=== PATIENT | female | born 1970 | race Caucasian/White ===

== ENCOUNTER → 2021-08-31 | Outpatient (CLI) | payer BC ==
--- NOTE | 2021-08-31 17:09 | CARD ---
MR#: [id number] Date of Study: 08/31/2021 Ordering Physician: NELI TRIVEDI, Referring Physician: NELI TRIVEDI, Tech: Carie Rhoades, [facility] APPROVED REPORT EXAM: Two-dimensional and M-mode echocardiogram with Doppler and color Doppler. Other Information Quality : AverageHR: 65bpm INDICATION Murmur 2D DIMENSIONS RVDd2.5 (2.9-3.5cm)Left Atrium(2D)2.8 (1.6-4.0cm) IVSd0.8 (0.7-1.1cm)Aortic Root(2D)2.7 (2.0-3.7cm) LVDd4.2 (3.9-5.9cm)LVOT Diameter2.0 (1.8-2.4cm) PWd0.8 (0.7-1.1cm)LVDs2.2 (2.5-4.0cm) FS (%) 48.8 %SV64.0 ml LVEF(%)80.5 (>50%) Aortic Valve AoV Peak Antwon.142.7cm/sAoV VTI30.1cm AO Peak GR.8.1mmHgLVOT Peak Antwon.129.1cm/s LVOT VTI 27.47cmAO Mean GR.4mmHg ARYAN (VMAX)2.72jk9JTO (VTI)2.78cm2 Mitral Valve MV E Emqglggn88.8cm/sMV DECEL [id number] MV A Myblpxjg89.2cm/sMV E Mean Gr.1mmHg MV CYU82jgD/A Ratio1.4 MVA (PHT)4.14cm2 TDI E/Lateral E'7.3E/Medial E'8.3 Pulmonary Valve PV Peak Fivgeahm84.6cm/sPV Peak Grad.3mmHg Tricuspid Valve TR P. Rozcqopv073yj/sRAP ZYERDGVA4bhFb TR Peak Gr.68utJpTJLZ20thNq Pulmonary Vein S1 Ukgoosby06.7cm/sD2 Gkwlutss68.1cm/s PVa lbxhpfwt890kgmm LEFT VENTRICLE The left ventricle is normal size. There is normal left ventricular wall thickness. The left ventricu lar systolic function is normal. The Ejection Fraction is 65%. There is normal LV segmental wall saurabh on. Transmitral Doppler flow pattern is Grade II-pseudonormal filling dynamics. RIGHT VENTRICLE The right ventricle is normal size. There is normal right ventricular wall thickness. The right ventr icular systolic function is normal. ATRIA The left atrium size is normal. The right atrium size is normal. The interatrial septum is intact wit h no evidence for an atrial septal defect or patent foramen ovale as noted on 2-D or Doppler imaging. AORTIC VALVE The aortic valve is normal in structure and function. Doppler and Color Flow revealed no significant aortic regurgitation. Calculated aortic valve area is 3.08 cm2 with maximum pressure gradient of 9 mm Hg and mean pressure gradient of 5 mmHg. MITRAL VALVE The mitral valve is normal in structure and function. There is no evidence of mitral valve prolapse. There is no mitral valve stenosis. Doppler and Color Flow revealed no mitral valve regurgitation note d. TRICUSPID VALVE The tricuspid valve is normal in structure and function. Doppler and Color Flow revealed trace tricus pid regurgitation with an estimated PAP of 33 mmHg. There is no tricuspid valve stenosis. PULMONIC VALVE The pulmonic valve is not well visualized. Doppler and Color Flow revealed trace pulmonic valvular re gurgitation. GREAT VESSELS The aortic root is normal in size. The ascending aorta is normal in size. The IVC is normal in size a nd collapses >50% with inspiration. PERICARDIAL EFFUSION There is no evidence of significant pericardial effusion. Critical Notification Critical Value: No <Conclusion> The left ventricular systolic function is normal. The Ejection Fraction is 65%. There is normal LV segmental wall motion. Transmitral Doppler flow pattern is Grade II-pseudonormal filling dynamics. Trace tricuspid regurgitation with an estimated PAP of 33 mmHg. There is no evidence of significant pericardial effusion. Signed by : Sam Sheffield, Electronically Approved : 08/31/2021 17:09:14
== END ==
LOC: ECHO 12:36
PROVIDERS: ATTEND Internal Medicine Cardiovascular Disease
DX: R01.1 Cardiac murmur, unspecified (principal)
CPT/HCPCS: 93306